=== PATIENT | female | born 1990 | race African-American/Black ===

== ENCOUNTER 2019-03-07 10:32 | Emergency (ER) | payer SELFPAY ==
[~2019-03-07] VITALS: Ht 162.6 cm; Wt 50.0 kg
[~2019-03-07 10:32] MED LIST: [UNRECOGNIZED DRUG - REMARK]
[2019-03-07] MEDS ORDERED: SODIUM CHLORIDE 0.9% 1,000 ML IV ONE (12:09)
[2019-03-07] MEDS ORDERED: KETOROLAC 30MG/ML VIAL IV STA (12:09)
[2019-03-07 12:47] LABS: BASOPHILS % 0.8 % (0.0-2.0); EOSINOPHILS % 0.9 % (0.0-5.0); HEMATOCRIT. 40.8 % (36.0-48.0); HEMOGLOBIN. 13.7 g/dL (12.0-16.0); LYMPHOCYTES % 14.7 % (20.0-50.0); MEAN CORPUSCULAR HEMOGLOBIN 32.9 pg (28.0-32.0); MEAN CORPUSCULAR VOLUME 97.5 fL (81.0-99.0); MEAN PLATELET VOLUME 9.7 fl (7.4-10.4); MONOCYTES % 4.9 % (2.0-8.0); NEUTROPHILS % 78.7 % (40.0-76.0); PLATELET 378 x1000/uL (130-400); RED BLOOD CELL COUNT 4.18 mill/uL (4.2-5.4); RED CELL DISTRIBUTION WIDTH 12.6 % (11.6-14.6)
[2019-03-07 12:52] LABS: CHLORIDE 102 mEq/L (98-107)
[2019-03-07 13:02] LABS: D-DIMER 0.21 mg/L FEU (<0.50); INR 1.1; PARTIAL THROMBOPLASTIN TIME 31.1 sec (23.4-31.0); PROTHROMBIN TIME 11.8 sec (9.6-11.0)
[2019-03-07] MEDS ORDERED: TRAMADOL 50MG TABLET PO ONE (13:15)
[2019-03-07] MEDS ORDERED: MAGNESIUM/ALUMINUM HYDROXIDE/SIMETHICONE 30ML UDC PO ONE (14:15)
[2019-03-07 14:57] VITALS: BP 110/63
== END 2019-03-07 15:45 | disposition home or self-care (01) ==
LOC: ER 15:40
DX: R07.89 Other chest pain (principal); F12.10 Cannabis abuse, uncomplicated; Z98.890 Other specified postprocedural states
CPT/HCPCS: 36415; 71045; 80053; 81025; 85025; 85379; 85610; 85730; 93005; 96374; 99284; J1885; J7030; Z7610